=== PATIENT | male | born 1995 | race Caucasian/White ===

== ENCOUNTER 2016-07-27 01:30 | Emergency (ER) | payer OTHER ==
[2016-07-27] MEDS ORDERED: PREDNISONE 20 MG TABLET PO ONE (02:38)
[2016-07-27] MEDS ORDERED: IPRATROPIUM/ALBUTEROL 0.5-2.5 MG/3 ML AMPUL NEB ONE ×2 (02:38→03:37)
[2016-07-27] MEDS ORDERED: ALBUTEROL SULFATE 0.083% NEB 2.5 MG/3 ML AMPUL NEB SCH (02:53)
--- NOTE | 2016-07-27 03:39 | ER Document Report ---
ED Respiratory Problem - General Chief Complaint: Chest Congestion Stated Complaint: SHORTNESS OF BREATH Time seen by provider: 03:37 Notes: Patient is a 20-year-old male that comes emergency department for chief complaint of shortness of breath, wheezing, and cough. Patient states he started getting sick about 3 days ago, sinus primary care yesterday and was placed on azithromycin which she took the first dose of. Patient denies fever. He states he vapes but does not smoke, he denies history of asthma, he states he got bronchitis once in the past with similar symptoms. Patient denies any other medical history or medical problems. TRAVEL OUTSIDE OF THE [place] IN LAST 30 DAYS: No - Related Data Allergies/Adverse Reactions: No Known Allergies Allergy (Unverified 07/27/16 01:39) Past Medical History - General Information source: Patient - Social History Smoking Status: Never Smoker Chew tobacco use (# tins/day): No Frequency of alcohol use: Occasional Drug Abuse: None Lives with: Family Family History: Reviewed & Not Pertinent Patient has suicidal ideation: No Patient has homicidal ideation: No - Medical History Medical History: Negative Renal/ Medical History: Denies: Hx Peritoneal Dialysis Surgical Hx: Negative - Immunizations Hx Diphtheria, Pertussis, Tetanus Vaccination: Yes Review of Systems - Review of Systems Constitutional: No symptoms reported EENT: No symptoms reported Cardiovascular: No symptoms reported Respiratory: See HPI Gastrointestinal: No symptoms reported Genitourinary: No symptoms reported Male Genitourinary: No symptoms reported Musculoskeletal: No symptoms reported Skin: No symptoms reported Hematologic/Lymphatic: No symptoms reported Neurological/Psychological: No symptoms reported Physical Exam - Vital signs Vitals: Temp Pulse Resp BP Pulse Ox 97.5 F 84 20 136/84 H 93 07/27/16 01:32 07/27/16 01:32 07/27/16 01:32 07/27/16 01:32 07/27/16 01:32 Interpretation: Normal - General General appearance: Appears well, Alert In distress: None - HEENT Head: Normocephalic, Atraumatic Eyes: Normal Conjunctiva: Normal Extraocular movements intact: Yes Eyelashes: Normal Pupils: PERRL Sinus: Normal Nasal: Normal Mouth/Lips: Normal Mucous membranes: Normal Pharynx: Normal Neck: Normal - Respiratory Respiratory status: No respiratory distress. No: Respiratory distress, Tachypnea Chest status: Nontender Breath sounds: Wheezing Chest palpation: Normal - Cardiovascular Rhythm: Regular. No: Tachycardia Heart sounds: Normal auscultation, S1 appreciated, S2 appreciated Murmur: No - Abdominal Inspection: Normal Distension: No distension Bowel sounds: Normal Tenderness: Nontender. No: Tender, Guarding Organomegaly: No organomegaly - Back Back: Normal, Nontender. No: Tender - Extremities General upper extremity: Normal inspection, Nontender, Normal ROM, Normal strength General lower extremity: Normal inspection, Nontender, Normal ROM, Normal strength - Neurological Neuro grossly intact: Yes Cognition: Normal Orientation: AAOx4 [place] Coma Scale Eye Opening: Spontaneous [place] Coma Scale Verbal: Oriented [place] Coma Scale Motor: Obeys Commands [place] Coma Scale Total: 15 Speech: Normal Cranial nerves: Normal Cerebellar coordination: Normal Motor strength normal: LUE, RUE, LLE, RLE Additional motor exam normals: Equal child welfare specialist Sensory: Normal - Psychological Associated symptoms: Normal affect, Normal mood - Skin Skin Temperature: Warm Skin Moisture: Dry Skin Color: Normal Course - Re-evaluation Re-evalutation: On my examination patient has diffuse end expiratory wheezing, no tachypnea, no hypoxia, patient is well-appearing. By report patient was in much more distressed before I saw him (he had already received 2 treatments before I saw him). Patient given final DuoNeb treatment, afterwards wheezing completely resolved, patient walking around without any signs of respiratory distress, states he feels great. Chest x-ray is unremarkable. Patient will be provided with prednisone, albuterol, discussed follow-up and return precautions, patient states understanding and agreement. - Vital Signs Vital signs: Temp Pulse Resp BP Pulse Ox 97.5 F 84 10 L 117/71 100 07/27/16 01:32 07/27/16 01:32 07/27/16 04:01 07/27/16 04:01 07/27/16 04:01 Discharge - Discharge Clinical Impression: Wheezing, Bronchitis Upper respiratory infection Qualifiers: URI type: unspecified URI Qualified Code(s): J06.9 - Acute upper respiratory infection, unspecified Condition: Stable Disposition: HOME, SELF-CARE Additional Instructions: Chest x-ray is normal. Examination and workup is consistent with bronchitis, take the prednisone as directed, use the albuterol inhaler if needed, continue your azithromycin. You had your first dose of prednisone today (), next dose of prednisone is tomorrow. Follow-up with primary care. Return to emergency department for any returned or new concerning symptoms. Prescriptions: Albuterol Sulfate [Proair HFA Inhalation Aerosol 8.5 gm MDI] 2 puff IH Q4H PRN # 1 mdi PRN Reason: Prednisone 20 mg PO DAILY #15 tablet
[2016-07-27 07:39] VITALS: BP 130/76
== END 2016-07-27 06:35 | disposition home or self-care (01) ==
LOC: ER 01:30
DX: J06.9 Acute upper respiratory infection, unspecified (principal); J40 Bronchitis, not specified as acute or chronic; R06.02 Shortness of breath; R05 Cough; R06.2 Wheezing
CPT/HCPCS: 94640 ×2; 99284; 71020; J7512; J7620